=== PATIENT | female | born 1930 | race Caucasian/White ===

== ENCOUNTER → 2017-04-03 | Outpatient (CLI) | payer OTHER ==
[~2017-04-03] MED LIST: ALBU1AER9 INH; ALBU1NEB10 INH; ALL100 PO; ASPI-435 PO; CLC100 PO; CLOP1TAB15 PO; CLR10 PO; CLTP PO; CRG125 PO; DENO60SO SC; FERR325T5 PO; FLUT0.0529 NAE; FRS/40 PO; LANS15CA27 PO; LEVO50TA6 PO; LOSA1TAB PO; MULT-506 PO; NTRGSL/4 UT; ONDA4TAB65 PO; OXYC-57 PO; PANT40TA PO; POTA-335 PO; PRED-301 PO; PROC5TAB PO; ROSU20TA PO; RSTOPS OP; SERT50TA PO; TIOTCAP INH; [UNRECOGNIZED DRUG - CODE] OTB
[2017-04-03 13:34] VITALS: BP 118/58; PULSE 83; TEMP 36.7; O2SAT 85
--- NOTE | 2017-04-03 15:16 | Radiation Oncology Follow-Up ---
Radiation Oncology Follow-Up Date of Visit Apr 03, 2017. Reason For Visit Annual follow-up Radiation Completion Date 12/25/07 Diagnosis (1) Endometrial adenocarcinoma Status: Resolved Onset Date: ~ 2007 Location: uterus with vaginal recurrence Histology Subtype: adenocarcinoma Permanent Comment: Adenocarcinoma the endometrium Status post total abdominal hysterectomy and salpingo-oophorectomy Pathologic stage [id number] grade 3 Biopsy-proven vaginal recurrence Status post completion of radiation therapy 12/25/2007 she had for high-dose treatments Last Edited By: Bridgette Ruiz on Feb 22, 2015 16:34 Interim History She's been doing well over this past year. She denies any vaginal discharge. No vaginal bleeding. Occasional vaginal itching. She's had no change in urination or bowel habits. She denies any abdominal pressure pain. 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 She was hospitalized at [facility] due to respiratory difficulties. She now requires oxygen on a continuous basis. She previously only needed this at night. Today she did not wear oxygen when coming in for her visit. She came in her O2 saturations were in the 80s. She has therefore been instructed to continue her oxygen on a continuous basis. Allergies Coded Allergies: Amoxicillin (Unverified Allergy, Severe, HIVES, 02/17/14) Chlorzoxazone (Verified Allergy, Unknown, PARAFON FORTE, 08/19/09) Home Medications Scheduled Acetic Acid (Bulk) (Acetic Acid), 2 OTB 2XWK Allopurinol (Zyloprim *), 100 MG PO DAILY Aspirin (Aspirin 81), 1 TAB PO DAILY Calcium/Vitamin D (Caltrate 600 Plus *), 1 TAB PO BID Carvedilol (Coreg *), 12.5 MG PO BID Clopidogrel (Plavix), 75 MG PO DAILY Cyclosporine (Restasis Eye Drops), 1 DROP OP BID Docusate Sodium (Colace *), 100 MG PO BID Ferrous Sulfate (Ferrous Sulfate), 1 PO BID Fluticasone Propionate (Nasal) (Flonase), 2 SPRAYS SCOOBY DAILY Furosemide (Lasix), 40 MG PO BID Lansoprazole (Prevacid), 15 MG PO DAILY Levothyroxine Sodium (Levothyroxine Sodium), 50 MCG PO DAILY Losartan Potassium (Cozaar), 25 MG PO DAILY Multivitamin (Multivitamin), 1 TAB PO DAILY Nitroglycerin (Nitrostat), 0.4 MG UT PRN Oxycodone/Acetaminophen 5MG/325MG (Percocet 5MG/325MG), 1 TABLET PO Q4HR PRN Pantoprazole Sodium (Protonix), 1 TAB PO DAILY Potassium Chloride (Micro-K Ext Rel), 20 MEQ PO DAILY Prednisone (Prednisone), 10 MG PO DAILY Rosuvastatin Calcium (Crestor), 20 MG PO DAILY Sertraline (Zoloft), 100 MG PO DAILY Tiotropium Beyer (Spiriva Handihaler), 1 CAP INH DAILY Scheduled PRN Albuterol Soln (Ventolin Soln), 1 AMP INH Q6H PRN Albuterol Sulfate (Proair Hfa), 2 PUFFS INH Q4 PRN Loratadine (Claritin), 10 MG PO DAILY PRN for Documentation Ondansetron Hcl (Zofran), 1 TAB PO Q6H PRN for Nausea Prochlorperazine Maleate (Compazine), 5 MG PO TID PRN for nausea Miscellaneous Medications Denosumab (Prolia), SC Review of Systems Gastrointestinal: Symptoms: Diarrhea GI Comments: occ diarrhea Oral: Symptoms: No Problems Other Oral Symptoms: sore throat occ diff swallowing Respiratory: Symptoms: Dry Cough, SOB With Exertion Respiratory Comments: WATERS with walking - has O2 Other Respiratory: patient came to dept without oxygen started oxygen 2L 1450 95% Urinary: Symptoms: Frequency Comments: occ incont. sometimes wears depends Skin: Symptoms: No Problems Other Skin Symptoms: occ prutitis in treatment area per patient Physical Exam Vital Signs Date Time Temp Pulse Resp B/P (MAP) Pulse Ox O2 Delivery O2 Flow Rate FiO2 04/03/17 13:34 36.7 83 20 118/58 85 Pain: Pain Onset: years Pain Duration: intermet Patient Pain Scale: 0 - 10 Initial Pain Intensity: 9.0 Pain Description: Aching Fatigue: None General Appearance: no apparent distress Eyes: normal inspection, EOMI ENT: normal ENT inspection Neck: no adenopathy Respiratory/Chest: lungs clear, no respiratory distress, no accessory muscle use Cardiovascular: regular rate, rhythm, no gallop, no murmur Abdomen: non tender, soft Genitourinary - Female: Normal external genitalia. She does not have any signs of monilial infection on this visit. There is foreshortening of the vagina. There are no visible or palpable lesions of the vagina. Bimanual examination is difficult due to large body habitus. She does not express any pain on palpation of the lower abdomen. Pap smear was taken. Anal / Rectum: Mild external hemorrhoids. No rectal masses no rectal bleeding. Normal sphincter tone. Neurologic/Psychiatric: no motor/sensory deficits, alert, normal mood/affect Skin: warm/dry Assessment & Plan Plan: Continue regular follow-up with her primary care physician. She was encouraged to use her oxygen on a regular basis due to the pulse oximetry being low when she came in for her visit. She had not been wearing her oxygen when traveling in to the office today. She'll be notified as to results of her Pap smear. She may call if she has any questions or concerns. Total Time In Follow-Up I spent 25 minutes speaking to the patient and performing examination. I spent 15 minutes reviewing information and completing this note. Copy To Ajit Mckenzie M.D.
== END | disposition home or self-care (01) ==
LOC: C.ONC 13:23
PROVIDERS: ATTEND Physician Assistant Medical
DX: Z08 Encounter for follow-up examination after completed treatment for malignant neoplasm (principal); Z92.3 Personal history of irradiation; Z85.42 Personal history of malignant neoplasm of other parts of uterus